=== PATIENT | male | born 1950 | race Caucasian/White ===

== ENCOUNTER 2022-10-03 11:03 | Outpatient (CLI) | payer MEDICARE, BC, SELFPAY ==
[2022-10-03 13:14] LABS: Basophils Absolute Auto 0.02 K/uL (0.00-0.30); Basophils Percent Auto 0.4 % (0.0-3.0); Eosinophils Absolute Auto 0.15 K/uL (0.00-0.50); Eosinophils Percent Auto 2.7 % (0.0-7.0); Hematocrit 42.3 % (37.0-53.0); Hemoglobin* 14.6 gm/dL (13.5-17.5); Immature Granulocytes Abs Auto 0.01 K/uL (0.00-0.30); Immature Granulocytes Pct Auto 0.2 %; Lymphocytes Absolute Auto 1.46 K/uL (0.90-2.90); Lymphocytes Percent Auto 26.7 % (20-44); Mean Corpuscular HGB Conc 35 gm/dL (32-36); Mean Corpuscular Hemoglobin 31 pg (26-34); Mean Corpuscular Volume 89 fL (80-100); Monocytes Percent Auto 12.3 % (0.0-11.0); Neutrophils Absolute Auto 3.15 K/uL (1.7-7.0); Neutrophils Percent Auto 57.7 % (42.0-72.0); Platelet Count* 175 K/uL (140-440); Red Blood Count 4.76 m/uL (4.30-5.90); White Blood Count* 5.46 K/uL (4.50-11.00)
[2022-10-03 13:18] LABS: Slide Review Reflex No
[2022-10-03 13:43] LABS: Chloride* 104 mmol/L (96-114); Potassium* 4.7 mmol/L (3.6-5.1); Sodium* 136 mmol/L (135-149)
[2022-10-03 13:46] LABS: Alanine Aminotransferase* 28 U/L (4-50); Blood Urea Nitrogen* 18 mg/dL (7-30); Carbon Dioxide* 23 mmol/L (20-32); Cholesterol* 145 mg/dL (90-199); Creatinine* 1.2 mg/dL (0.5-1.5); Estimated Glomerular Filt Rate 65 ml/min
[2022-10-03 13:47] LABS: Calcium* 9.9 mg/dL (8.4-10.6); Glucose* 109 mg/dL (60-115); HDL Cholesterol* 40 mg/dL (>=40); LDL Cholesterol Calculated 66 mg/dL (<100); Triglycerides* 194 mg/dL (40-149)
[2022-10-03 14:16] LABS: PSA Screen* 0.61 ng/mL (0.10-4.00)
== END 2022-10-03 11:04 | disposition home or self-care (01) ==
PROVIDERS: PCP Family Medicine; Visit Provider Family Medicine
DX: E78.5 Hyperlipidemia, unspecified (principal); I10 Essential (primary) hypertension; M10.9 Gout, unspecified; Z12.5 Encounter for screening for malignant neoplasm of prostate
CPT/HCPCS: 80048; 80061; 84153; 84460; 85025

== ENCOUNTER 2022-10-22 13:47 | Outpatient (CLI) | payer MEDICARE, BC, SELFPAY ==
[2022-10-22 15:25] VITALS: BP 164/83
--- NOTE | 2022-10-22 17:18 | W.PM.STED ---
Stress Test Note Date Date Seen: 10/22/22 Date of test: 10/22/22 Providers Primary care provider: Kimo Samayoa Stress test physician: Osvaldo Hill Stress Test Note Stress test ordered: Stress Echo Indication for test: Follow-up atherosclerotic heart disease Results discussion: Patient is very nice gentleman who presents here for a follow-up he has a history of previous stent placement he is having no chest pain or shortness of breath, pretest EKG shows right bundle branch block configuration, the rhythm being sinus, with a rate of 75 and a blood pressure 158/74. Cardiac stress test medical history form is reviewed, patient is exercised for a total time duration of 7 minutes 37 seconds and achieved a metabolic equivalent of 7 Mets. Maximum heart rate was 153, which is 119% of the maximum test is terminated because of fulfillment of protocol, he did not have any chest pain shortness of breath or any anginal equivalent symptoms, review of the tracing post test showed no EKG evidence of his ischemia, ST elevation or depression. He has occasional PVCs Impression: Negative electrographic portion of stress echo Follow up suggested: Await echo images, conditioning was felt to be excellent, patient left this testing facility in good condition. Follow-up with primary care
== END 2022-10-22 13:48 | disposition home or self-care (01) ==
LOC: STRESS 14:08
PROVIDERS: PCP Family Medicine; Visit Provider Family Medicine
DX: I25.10 Atherosclerotic heart disease of native coronary artery without angina pectoris (principal); R06.09 Other forms of dyspnea
CPT/HCPCS: 93016; 93325; 93351

== ENCOUNTER 2022-11-25 09:21 | Outpatient (CLI) | payer MEDICARE, BC, SELFPAY | END 2022-11-25 09:22 | disposition home or self-care (01) | LOC: OP CLINIC 09:23 | PROVIDERS: PCP Family Medicine; Visit Provider Surgery | DX: Z12.11 Encounter for screening for malignant neoplasm of colon (principal); K63.5 Polyp of colon; K62.1 Rectal polyp; K64.4 Residual hemorrhoidal skin tags; K57.30 Diverticulosis of large intestine without perforation or abscess without bleeding; Z86.010 Personal history of colon polyps | CPT/HCPCS: 45385; 88305; 99153; J2250; J3010 ==